=== PATIENT | female | born 1985 | race Caucasian/White ===

== ENCOUNTER 2017-07-16 05:40 | Day surgery (SDC) | payer OTHER ==
[~2017-07-16] VITALS: Ht 162.6 cm; Wt 102.1 kg
[~2017-07-16 05:40] MED LIST: LEVOTHYROXINE75 MCG PO; SPRINTEC1 EACH PO
--- NOTE | 2017-07-16 09:13 | NUR ---
07/16/17 0913 Anabelle Velasquez 0909-PATIENT ARRIVED TO PACU ON 6L MASK O2 SAT 99% PATIENT DROWSY AWAKE DENIES PAIN OR NAUSEA. 4 LAP SITES TO ABDOMEN 2X2 GAUZE TO UMBILICUS SCANT AMT OF SHADOWING.
[2017-07-16] MEDS ORDERED: IBUPROFEN800 MG PO (09:21)
[2017-07-16] MEDS ORDERED: MAPAP325 MG PO (09:22)
--- NOTE | 2017-07-16 09:45 | NUR ---
ICED WATER GIVEN. CALL LIGHT W/IN REACH. SPOUSE @ BS.
--- NOTE | 2017-07-16 10:55 | OR ---
[facility] [address] [place], [place] [address] Signed DATE OF OPERATION: 07/16/2017 SURGEON: Roro Barrios MD PREOPERATIVE DIAGNOSES: 1. Chronic calculous cholecystitis. 2. Morbid obesity. POSTOPERATIVE DIAGNOSES: 1. Chronic calculous cholecystitis. 2. Morbid obesity. PROCEDURES: 1. Laparoscopic cholecystectomy with intraoperative cholangiogram. 2. Surgeon-directed fluoroscopy. ANESTHESIA: General endotracheal by Moises Rosas CRNA, and local 10 mL of 0.25% Marcaine with epinephrine. INDICATION: This morbidly obese 31-year-old white woman has had episodic right upper abdominal pain, particularly worse following fatty food intake. She was evaluated by her primary provider, Pk Joe PA-C, who performed gallbladder ultrasound on June 24, 2017, showing multiple gallstones. She has a lengthy family history of other family members with biliary disease and cholecystectomy. She is admitted at this time to undergo cholecystectomy preferred by laparoscopic approach understanding the risks of bleeding, infection, bile duct injury, need for open procedure and other unforeseen complications. Understanding this, she wished to proceed. FINDINGS: The gallbladder was chronically inflamed. There were multiple multifaceted yellow gallstones noted within the gallbladder once excised. The cholangiogram was normal. Chronic inflammatory changes of gallbladder were noted. DESCRIPTION OF PROCEDURE: The patient was brought to the operating room, given a general endotracheal anesthetic. Preoperative antibiotic Ancef was given and sequential compression device stockings were used. Heparin was subcutaneously administered. The abdomen was prepared with a chlorhexidine solution and draped sterilely. The infraumbilical incision was made, and Electronically Signed By: RORO BARRIOS MD 07/16/17 1055 PATIENT NAME: SHEA MAHONEY OPERATIVE REPORT DATE OF : 87 REPORT #: [id number] PHYSICIAN: RORO BARRIOS MD PCP: PK JOE REPORT IS CONFIDENTIAL AND NOT TO BE RELEASED WITHOUT AUTHORIZATION [facility] [address] [place], [place] [address] Signed using an open Jl cannula technique, pneumoperitoneum was achieved to a level of 14 mmHg with carbon dioxide gas. Intraabdominal inspection showed no sign of ascites or carcinomatosis. The gallbladder was chronically inflamed. The liver had only minimal fatty infiltration clinically. The gallbladder was grasped and elevated cephalad and found to have no sign of adherent adhesions. Gallbladder was retracted laterally and using blunt and electrocautery dissection, the triangle of Calot was dissected free ultimately identifying a dominant cystic artery, which was doubly clipped and divided. This allowed for better exposure of the infundibulum allowing for the critical view to be fully discerned. A clip was applied across the gallbladder cystic duct junction and a transverse choledochotomy was made in the cystic duct. Using an Gonzalez type cholangiocatheter, intraoperative cholangiography was undertaken showing free flow of contrast in biliary tree with prompt emptying into the duodenum. The remaining cystic duct was triply clipped after removal of the catheter and the gallbladder was dissected free in a retrograde fashion using electrocautery. A small rent was made in the gallbladder allowing for egress of clear yellow bile. This was then clipped for security. The gallbladder was fully excised at this point and placed in an endobag and extracted through the infraumbilical port site. The gallbladder was opened on the back table by the circulating nurse and found to have multiple multifaceted gallstones. Irrigation was undertaken in subhepatic space. There was no sign of bile leak, bleeding, or other problems. The clips on the cystic duct appeared quite secure. Excess irrigation fluid was suctioned free and the trocar was were removed under direct visualization showing no sign of bleeding. The infraumbilical fascial incision was reapproximated with interrupted 0 Vicryl suture. All wounds were copiously irrigated with saline solution. Skin closed with interrupted 3-0 Vicryl. Steri-Strips were applied. The patient was ultimately extubated and transported to recovery room in good condition having suffered no complications. Sponge, needle, and instrument counts reported as correct x3. MD ANGELA Atkinson/FRANCESL /[id number] cc: MICHELLE Diego Electronically Signed By: RORO BARRIOS MD 07/16/17 1055 PATIENT NAME: SHEA MAHONEY OPERATIVE REPORT DATE OF : 87 REPORT #: [id number] PHYSICIAN: RORO BARRIOS MD PCP: PK JOE REPORT IS CONFIDENTIAL AND NOT TO BE RELEASED WITHOUT AUTHORIZATION [address] [address] Signed Copies: PK JOE ~ Electronically Signed By: RORO BARRIOS MD 07/16/17 1055 PATIENT NAME: MARUSHEAROSALIO ABREUELLE OPERATIVE REPORT DATE OF : 87 REPORT #: [id number] PHYSICIAN: RORO BARRIOS MD PCP: PK JOE REPORT IS CONFIDENTIAL AND NOT TO BE RELEASED WITHOUT AUTHORIZATION
--- NOTE | 2017-07-16 11:01 | NUR ---
PT EATS JELLO AND TOLERATES THAT WELL. MORE ICED WATER GIVEN. FAMILY @ BS. PATIENT REPORTS PAIN IS "ABOUT THE SAME".
--- NOTE | 2017-07-16 11:40 | NUR ---
PT UP TO BR W/RN STANDBY. PT AMBULATES WELL AND DENIES DIZZINESS. URINE UNMEASURED. PT FEELS IF HER BLADDER IS EMPTY AND REPORTS IT WAS A LARGE VOID. PT SITTING ON THE EDGE OF THE BED AND REPORTS SHE FEELS "COMFORTABLE" THERE.
--- NOTE | 2017-07-16 12:11 | NUR ---
DC INSTRUCTIONS GIVEN IN PRESENCE OF SPOUSE AND BOTH VERBALIZE UNDERSTANDING. PT GETTING DRESSED IN PRESENCE OF SPOUSE.
[2017-07-16] MEDS ORDERED: DILAUDID4 MG PO (13:05)
--- NOTE | 2017-07-16 13:28 | NUR ---
PT TRANSFERS HERSELF TO AND THEN TO PERSONAL VEHICLE AND TOLERATES THAT WELL.
== END 2017-07-16 13:22 | disposition home or self-care (01) ==
LOC: DS 05:40
PROVIDERS: Surgery
PROC: BF13YZZ Fluoroscopy of Gallbladder and Bile Ducts using Other Contrast (ICD-10-PCS; 2017-07-16)
PROC: 0FT44ZZ Resection of Gallbladder, Percutaneous Endoscopic Approach (ICD-10-PCS; principal; 2017-07-16 06:45)
DX: K80.10 Calculus of gallbladder with chronic cholecystitis without obstruction (principal); E66.01 Morbid (severe) obesity due to excess calories; I49.9 Cardiac arrhythmia, unspecified; E03.9 Hypothyroidism, unspecified; J45.909 Unspecified asthma, uncomplicated; Z68.39 Body mass index [BMI] 39.0-39.9, adult; Z79.899 Other long term (current) drug therapy
CPT/HCPCS: 00790; 74300; J0690; J1100; J1644; J1885; J2250; J2405; J2704; J2710; J2765; J3010; J7120; Q9967

== ENCOUNTER 2019-12-07 07:00 | Inpatient (IN) | payer OTHER ==
[~2019-12-07 07:00] MED LIST changes: +DILAUDID4 MG PO; +IBUPROFEN800 MG PO; +MAPAP325 MG PO
--- NOTE | 2019-12-07 12:52 | PR ---
[facility] [address] [facility] [place], [place] [address] Signed Progress Notes IP Datetime Report Generated by CPN: 12/07/2019 12:52 PROGRESS NOTES: [id number] Impression: Normal Progression of Labor; Reassuring Heart Rate Procedures: Intrauterine Pressure Catheter; Scalp Electrode; Sterile Vag Exam Plan: Augmentation VITAL SIGNS: [id number] Vital Signs: Reviewed; Within Normal Limits EXAM: [id number] Dilatation: 2.0 Effacement: 60 Station: -2 Contractions: Rare MEMBRANES: [id number] Amniotic Fluid Color: Clear Comments: Pt doing well. Rare contractions. Low dose pit per protocol. IUPC and FSE placed w/out difficulty. Continue pit per protocol FETUS A: [id number] FHR Baseline: 150 Variability: Minimal - >Undetectable to <=5bpm Accelerations: 15X15 Decelerations: None FHR Category: Category II Presentation: Vertex Comments on Fetus A: No evidence of metabolic acidosis FETUS B: [id number] Signing Physician: Marisela Urbano DO Copies: ~ *Electronically Signed* 12/07/19 1252 MARISELA URBANO DO PATIENT NAME: MARUSHEA VALVERDE PROGRESS NOTE DATE OF : 87 PHYSICIAN: MARISELA URBANO DO RPT #: [id number] REPORT IS CONFIDENTIAL AND NOT TO BE RELEASED WITHOUT AUTHORIZATION
--- NOTE | 2019-12-08 18:15 | PR ---
[facility] [address] [facility] [place] [address] Signed PP Progress Notes Datetime Report Generated by CPN: 12/08/2019 18:15 SUBJECTIVE: [id number] Pain: Within Normal Limits Nausea/Vomiting: Denies Flatus: Yes Vital Signs: [id number] Vital Signs: Reviewed; Within Normal Limits EXAM: Ongoing Cardiovascular: Normal Respiratory: Normal Abdomen/Uterus: Normal Lochia: Normal Vulva/Perineum: Not Done Breasts: Not Done CVA Tenderness: Normal Extremities: Normal Incision: Not Applicable Progress: Normal Exam Comments: Fundus firm U-2 IMPRESSION/PLAN/PROCEDURES: [id number] Impression: Normal Progression Plan: Continue Present Management Progress Notes: Pt seen and examined. Doing well. No concerns. Anticipate d/c home tomorrow. Signing Physician: Marisela Urbano DO Copies: ~ *Electronically Signed* 12/08/19 1813 MARISELA URBANO DO PATIENT NAME: SHEA MAHONEY PROGRESS NOTE DATE OF : 87 PHYSICIAN: MARISELA URBANO DO RPT #: [id number] REPORT IS CONFIDENTIAL AND NOT TO BE RELEASED WITHOUT AUTHORIZATION
--- NOTE | 2019-12-09 07:58 | PR ---
[facility] [address] [facility] [place], [place] [address] Signed PP Progress Notes Datetime Report Generated by CPN: 12/09/2019 07:58 SUBJECTIVE: [id number] Pain: Within Normal Limits Nausea/Vomiting: Denies Flatus: Yes Bowel Movement: No Vital Signs: [id number] Vital Signs: Reviewed; Within Normal Limits EXAM: Ongoing Cardiovascular: Normal Respiratory: Normal Abdomen/Uterus: Normal Lochia: Normal Vulva/Perineum: Not Done Breasts: Not Done CVA Tenderness: Normal Extremities: Normal Incision: Not Applicable Progress: Normal Exam Comments: Fundus firm U-2 nontender IMPRESSION/PLAN/PROCEDURES: [id number] Impression: Normal Progression Plan: Discharge Progress Notes: Pt seen and examined. Doing well. Ambulating, voiding, and tolerating full diet. Pain and lochia minimal. well w/ RN assistance. No fevers/chills/lightheadedness or other concerns. Desires d/c home today. Reviewed d/c instructions in detail. Plan f/u in 2 wks for pp check Signing Physician: Marisela Urbano DO Copies: ~ *Electronically Signed* 12/09/19 0758 MARISELA URBANO DO PATIENT NAME: SHEA MAHONEY PROGRESS NOTE DATE OF : 87 PHYSICIAN: MARISELA URBANO DO RPT #: [id number] REPORT IS CONFIDENTIAL AND NOT TO BE RELEASED WITHOUT AUTHORIZATION
== END 2019-12-09 11:15 | disposition home or self-care (01) | DRG 807 ==
LOC: FBCO 07:00 → FBC 07:25
PROVIDERS: ADMIT Obstetrics & Gynecology
PROC: 10E0XZZ Delivery of Products of Conception, External Approach (ICD-10-PCS; principal; 2019-12-07)
PROC: 0KQM0ZZ Repair Perineum Muscle, Open Approach (ICD-10-PCS; 2019-12-07)
PROC: 10H07YZ Insertion of Other Device into Products of Conception, Via Natural or Artificial Opening (ICD-10-PCS; 2019-12-07)
PROC: 00HU33Z Insertion of Infusion Device into Spinal Canal, Percutaneous Approach (ICD-10-PCS; 2019-12-07)
PROC: 3E0R3BZ Introduction of Anesthetic Agent into Spinal Canal, Percutaneous Approach (ICD-10-PCS; 2019-12-07)
PROC: 3E0234Z Introduction of Serum, Toxoid and Vaccine into Muscle, Percutaneous Approach (ICD-10-PCS; 2019-12-09)
DX: O99.824 Streptococcus B carrier state complicating childbirth (principal); Z37.0 Single live birth; Z3A.38 38 weeks gestation of pregnancy; O70.1 Second degree perineal laceration during delivery; O69.81X0 Labor and delivery complicated by cord around neck, without compression, not applicable or unspecified; O99.284 Endocrine, nutritional and metabolic diseases complicating childbirth; E03.9 Hypothyroidism, unspecified; O26.893 Other specified pregnancy related conditions, third trimester; Z67.31 Type AB blood, Rh negative; O99.89 Other specified diseases and conditions complicating pregnancy, childbirth and the puerperium; D35.2 Benign neoplasm of pituitary gland; Z79.899 Other long term (current) drug therapy
CPT/HCPCS: 36415; 83030; 85027; 86850; 86870; 86900; 86901; A9270; J2540; J2590; J2790; J2795

== ENCOUNTER 2022-08-21 05:02 | Inpatient (IN) | payer OTHER ==
[~2022-08-21] VITALS: Ht 162.6 cm; Wt 109.8 kg
[2022-08-21 05:43] VITALS: BP 136/77
--- NOTE | 2022-08-21 15:16 | PR ---
[facility] [address] [facility] [place], [place] [address] Signed Progress Notes IP Datetime Report Generated by CPN: 08/21/2022 15:15 PROGRESS NOTES: [id number] Impression: Reassuring Heart Rate Procedures: Sterile Vag Exam Plan: Augmentation Informed Consent Obtain: Vaginal Delivery VITAL SIGNS: [id number] Vital Signs: Reviewed VS Notable Details: One elevated BP; will monitor EXAM: [id number] Dilatation: 5.0 Effacement: 70 Station: -2 Contractions: Rare MEMBRANES: [id number] Comments: Pt seen and examined. Doing well. No cervical change noted from last check. Recommended augmentation w/ pitocin. Pt desires epidural prior to pitocin. Anesthesia notified. FETUS A: [id number] FHR Baseline: 125 Variability: Moderate 6-25bpm Accelerations: 15X15 Decelerations: None FHR Category: Category I Presentation: Vertex Comments on Fetus A: No evidence of metabolic acidosis FETUS B: [id number] Signing Physician: Marisela Urbano DO Copies: ~ *Electronically Signed* 08/21/22 1515 MARISELA URBANO (JOVAN) DO PATIENT NAME: MARUSHEA VALVERDE RECORD #: [id number] PROGRESS NOTE DATE OF : 87 PHYSICIAN: MARISELA URBANO (JOVAN) DO RPT #: [id number] REPORT IS CONFIDENTIAL AND NOT TO BE RELEASED WITHOUT AUTHORIZATION
--- NOTE | 2022-08-22 07:57 | PR ---
[place] [facility] [address] [facility] [place], [place] [address] Signed PP Progress Notes Datetime Report Generated by CPN: 08/22/2022 07:57 SUBJECTIVE: [id number] Pain: Within Normal Limits Nausea/Vomiting: Denies Flatus: Yes Bowel Movement: No Vital Signs: [id number] Vital Signs: Reviewed; Within Normal Limits Cardiovascular: Normal Respiratory: Normal Abdomen/Uterus: Normal Lochia: Normal Vulva/Perineum: Not Done Breasts: Not Done CVA Tenderness: Normal Extremities: Normal Incision: Not Applicable Progress: Normal Exam Comments: Fundus firm U-2 nontender IMPRESSION/PLAN/PROCEDURES: [id number] Impression: Normal Progression Plan: Continue Present Management Progress Notes: Pt seen and examined. Doing well. Ambulating, voiding, and tolerating full diet. Pain and lochia minimal. well. No fevers/chills or other concerns. Desires d/c home tomorrow Signing Physician: Marisela Urbano DO Copies: ~ *Electronically Signed* 08/22/22 0757 MARISELA URBANO (JOVAN) DO PATIENT NAME: SHEA MAHONEY PROGRESS NOTE DATE OF : 87 PHYSICIAN: MARISELA URBANO (JOVAN) DO RPT #: [id number] REPORT IS CONFIDENTIAL AND NOT TO BE RELEASED WITHOUT AUTHORIZATION
--- NOTE | 2022-08-23 10:01 | PR ---
[facility] [address] [facility] [place], [place] [address] Signed PP Progress Notes Datetime Report Generated by CPN: 08/23/2022 10:01 SUBJECTIVE: [id number] Pain: Within Normal Limits Nausea/Vomiting: Denies Flatus: Yes Bowel Movement: No Vital Signs: [id number] Vital Signs: Reviewed; Within Normal Limits EXAM: Met Cardiovascular: Normal Respiratory: Normal Abdomen/Uterus: Normal Lochia: Normal Vulva/Perineum: Not Done Breasts: Not Done CVA Tenderness: Normal Extremities: Normal Incision: Not Applicable Progress: Normal Exam Comments: Fundus firm U-2 nontender IMPRESSION/PLAN/PROCEDURES: [id number] Impression: Normal Progression Plan: Discharge Procedures: None Progress Notes: Pt seen and examined. Doing well. Ambulating, voiding and tolerating full diet. Pain and lochia minimal . No fevers, chills, or other concerns. Desires d/c home today Signing Physician: Marisela Urbano DO Copies: ~ *Electronically Signed* 08/23/22 1001 MARISELA URBANO (JOVAN) DO PATIENT NAME: SHEA MAHONEY PROGRESS NOTE DATE OF : 87 PHYSICIAN: MARISELA URBANO (JOVAN) DO RPT #: [id number] REPORT IS CONFIDENTIAL AND NOT TO BE RELEASED WITHOUT AUTHORIZATION
== END 2022-08-23 12:40 | disposition home or self-care (01) | DRG 807 ==
LOC: FBC 05:02
PROVIDERS: ADMIT Obstetrics & Gynecology; ATTEND Obstetrics & Gynecology
PROC: 10E0XZZ Delivery of Products of Conception, External Approach (ICD-10-PCS; principal; 2022-08-21)
PROC: 0KQM0ZZ Repair Perineum Muscle, Open Approach (ICD-10-PCS; 2022-08-21)
PROC: 10907ZC Drainage of Amniotic Fluid, Therapeutic from Products of Conception, Via Natural or Artificial Opening (ICD-10-PCS; 2022-08-21)
PROC: 00HU33Z Insertion of Infusion Device into Spinal Canal, Percutaneous Approach (ICD-10-PCS; 2022-08-21)
PROC: 3E0R3BZ Introduction of Anesthetic Agent into Spinal Canal, Percutaneous Approach (ICD-10-PCS; 2022-08-21)
PROC: 3E0334Z Introduction of Serum, Toxoid and Vaccine into Peripheral Vein, Percutaneous Approach (ICD-10-PCS; 2022-08-21)
DX: O99.824 Streptococcus B carrier state complicating childbirth (principal); Z37.0 Single live birth; O26.893 Other specified pregnancy related conditions, third trimester; Z67.31 Type AB blood, Rh negative; Z20.822 Contact with and (suspected) exposure to COVID-19; O70.1 Second degree perineal laceration during delivery; Z3A.39 39 weeks gestation of pregnancy; O99.214 Obesity complicating childbirth; O99.284 Endocrine, nutritional and metabolic diseases complicating childbirth; E03.9 Hypothyroidism, unspecified; Z88.8 Allergy status to other drugs, medicaments and biological substances
CPT/HCPCS: 36415; 83030; 85027; 86850; 86900; 86901; 87502; A9270; J2540; J2590; J2790; J2795; J3010; J7121; U0003